=== PATIENT | female | born 1945 | race Caucasian/White ===

== ENCOUNTER 2018-05-03 14:11 | Emergency (ER) | payer MEDICARE, OTHER, SELFPAY ==
[2018-05-03 14:20] VITALS: BP 185/94; PULSE 80; RESP 18; TEMP 36.5; O2SAT 99; BMI 36.7
--- NOTE | 2018-05-03 14:22 | ED.ABDPAIN ---
HPI - Abdominal Pain <JM Petit - Last Filed: 05/03/18 22:00> General Chief Complaint: Abdominal Pain Stated Complaint: pain in front and back of abdomen Time Seen by Provider: 05/03/18 14:22 Source: patient Mode of arrival: ambulatory Limitations: no limitations History of Present Illness HPI narrative: 72-year-old female with history of hypertension and hypothyroidism that is a nonsmoker here for complaint of left lower quadrant pain and left flank pain that started earlier this morning. She denies any urinary symptoms. No nausea vomiting. Positive p.o. intake. No trauma to the painful areas. She denies any stressors or relievers of her discomfort. Last bowel movement was earlier today and was unremarkable. She denies any fevers or chills. She denies any other concerns or complaints at this timeframe. Related Data Home Medications Medication Instructions Recorded Confirmed amitriptyline 50 mg PO QPM 05/03/18 05/03/18 aspirin 325 mg PO QPM 05/03/18 05/03/18 atenolol 50 mg PO DAILY 05/03/18 05/03/18 flaxseed oil 1,000 mg PO QAM 05/03/18 05/03/18 flaxseed oil 2,000 mg PO QPM 05/03/18 05/03/18 fluoride (sodium) [PreviDent 5000 1 applic DENTAL DIRECTED 05/03/18 05/03/18 Plus] fluticasone furoate 1 spray INTRANASAL DAILY 05/03/18 05/03/18 gabapentin [Neurontin] 1,200 mg PO BID 05/03/18 05/03/18 hydrochlorothiazide 25 mg PO DAILY 05/03/18 05/03/18 levothyroxine [Synthroid] 150 mcg PO DAILY 05/03/18 05/03/18 multivitamin 1 tab PO Q OTHER DAY 05/03/18 05/03/18 omeprazole 20 mg PO BID 05/03/18 05/03/18 simvastatin 20 mg PO BEDTIME 05/03/18 05/03/18 vit C-vit M-rmvtrs-ltj-om-3 1 cap PO DAILY 05/03/18 05/03/18 [Ocuvite] Previous Rx's Medication Instructions Recorded hydrocodone-acetaminophen [[place]] 1 tab PO Q6H PRN #15 tab 05/03/18 tamsulosin 0.4 mg PO DAILY #14 cap 05/03/18 Allergies Allergy/AdvReac Type Severity Reaction Status Date / Time No Known Drug Allergies Allergy Verified 05/03/18 14:22 Review of Systems <JM Petit - Last Filed: 05/03/18 22:00> Constitutional Denies chills, Denies fever(s), Denies lethargy and Denies weakness Eyes Denies change in vision, Denies eye discharge, Denies irritation and Denies loss of vision ENT Ears, Nose, Mouth, and Throat: Denies change in voice, Denies neck pain and Denies sore throat Cardiovascular Denies chest pain, Denies irregular heart rhythm, Denies lightheadedness, Denies palpitations, Denies dyspnea, Denies dyspnea on exertion and Denies orthopnea Respiratory Denies cough, Denies dyspnea, Denies dyspnea on exertion and Denies wheezing Gastrointestinal Gastrointestinal: Reports abdominal pain Comments: Left lower quadrant pain Genitourinary Reports flank pain Musculoskeletal Denies neck pain Integumentary/Breasts Denies pruritus, Denies erythema, Denies rash and Denies wounds Neurologic Denies confusion, Denies loss of vision and Denies weakness Psychiatric Denies anxiety, Denies confusion, Denies depression, Denies homicidal ideation and Denies suicidal ideation Endocrine Denies palpitations Hematologic/Lymphatic Denies easy bruising Allergic/Immunologic Denies wheezing Exam <JM Petit - Last Filed: 05/03/18 22:00> Initial Vital Signs Initial Vital Signs: Vital Signs Temperature 97.7 F 05/03/18 14:20 Pulse Rate 80 05/03/18 14:20 Respiratory Rate 18 05/03/18 14:20 Blood Pressure 185/94 H 05/03/18 14:20 Pulse Oximetry 99 05/03/18 14:20 Const General: cooperative and well developed Nutritional Appearance: well nourished Orientation: alert, awake, oriented x3 and not confused [facility] Mouth: oral mucosae normal and moist mucous membranes Eyes Conjunctivae: conjunctivae normal Sclera: sclerae normal Pupils: PERRL EOM: EOM intact bilaterally Chest Chest: normal inspection of the chest Resp Effort & Inspection: normal respiratory effort, able to speak in complete sentences, no respiratory distress and no use of accessory muscles Auscultation: clear to auscultation bilaterally, no rales, no rhonchi and no wheezes Cardio Rate: regular rate Rhythm: regular rhythm Heart Sounds: no click, no gallops, no murmurs and no rubs GI Inspection: non-distended Palpation: soft, no hepatosplenomegaly, No guarding, No pulsatile mass and tender (Left lower quadrant tenderness) Auscultation: normal bowel sounds General: No CVA tenderness Skin General: no rashes or lesions noted, No jaundice and No petechiae Neuro General: alert, oriented x3, gait normal and no focal motor deficits Speech: speech normal <Pradeep Pelayo DO - Last Filed: 05/04/18 10:17> Initial Vital Signs Initial Vital Signs: Vital Signs Temperature 97.7 F 05/03/18 14:20 Pulse Rate 80 05/03/18 14:20 Respiratory Rate 18 05/03/18 14:20 Blood Pressure 185/94 H 05/03/18 14:20 Pulse Oximetry 99 05/03/18 14:20 Course <JM Petit - Last Filed: 05/03/18 22:00> Orders Ordered: Discontinued Medications Sodium Chloride (Normal Saline 0.9%) 1,000 mls @ 1,000 mls/hr IV BOLUS ONE Stop: 05/03/18 15:41 Last Infusion: 05/03/18 16:30 Dose: 0 mls/hr Admin: 05/03/18 15:17 Dose: 1,000 mls/hr Ketorolac Tromethamine (Toradol) 30 mg IV NOW ONE Stop: 05/03/18 14:43 Last Admin: 05/03/18 15:17 Dose: 30 mg Vital Signs - 8 hr 05/03/18 14:20 05/03/18 15:56 05/03/18 16:30 Temperature 97.7 F Pulse Rate 80 Respiratory Rate 18 Blood Pressure 185/94 H Blood Pressure [Right Arm] 175/92 H 157/81 H Pulse Oximetry 99 05/03/18 17:20 Temperature Pulse Rate 73 Respiratory Rate 15 Blood Pressure 144/71 H Blood Pressure [Right Arm] Pulse Oximetry 95 <Pradeep Pelayo DO - Last Filed: 05/04/18 10:17> Orders Ordered: Discontinued Medications Sodium Chloride (Normal Saline 0.9%) 1,000 mls @ 1,000 mls/hr IV BOLUS ONE Stop: 05/03/18 15:41 Last Infusion: 05/03/18 16:30 Dose: 0 mls/hr Admin: 05/03/18 15:17 Dose: 1,000 mls/hr Ketorolac Tromethamine (Toradol) 30 mg IV NOW ONE Stop: 05/03/18 14:43 Last Admin: 05/03/18 15:17 Dose: 30 mg Vital Signs - 8 hr 05/03/18 14:20 05/03/18 15:56 05/03/18 16:30 Temperature 97.7 F Pulse Rate 80 Respiratory Rate 18 Blood Pressure 185/94 H Blood Pressure [Right Arm] 175/92 H 157/81 H Pulse Oximetry 99 05/03/18 17:20 Temperature Pulse Rate 73 Respiratory Rate 15 Blood Pressure 144/71 H Blood Pressure [Right Arm] Pulse Oximetry 95 MDM - Abdominal Pain <JM Petit - Last Filed: 05/03/18 22:00> Lab Data Result diagrams: 05/03/18 15:15 05/03/18 15:15 Lab Results 05/03/18 05/03/18 05/03/18 Range/Units 14:20 15:15 15:15 WBC 11.8 H (4.5-11.0) X10^3/uL RBC 4.87 (4.0-5.2) X10^6/uL Hgb 14.1 (12.0-16.0) g/dL Hct 42.5 (36-46) % MCV 87.3 (80-100) fL MCH 29.0 (26-34) PG MCHC 33.2 (30-36) % RDW 13.0 (11.6-14.8) % Plt Count 213 (150-400) X10^3/uL Neut % (Auto) 87.6 H (50-75) % Lymph % (Auto) 8.2 L (25-40) % [place] % (Auto) 3.7 (3-14) % Eos % (Auto) 0.2 L (2-4) % Baso % (Auto) 0.3 (0-2) % Neut # (Auto) 78137 H (0829-6340) /uL Lymph # (Auto) 1000 L (5281-8523) /uL [place] # (Auto) 400 (0-900) /uL Eos # (Auto) 0 (0-450) /uL Baso # (Auto) 0 (0-100) /uL Sodium 138 (137-145) mmol/L Potassium 4.5 (3.4-5.1) mmol/L Chloride 102 (98-107) mmol/L Carbon Dioxide 23 (22-32) mmol/L BUN 19 H (7-17) mg/dL Creatinine 0.90 (0.52-1.04) mg/dL Estimated GFR > 60.0 (>60) mL/min BUN/Creatinine Ratio 21.1 (6-22) Glucose 125 H (80-110) mg/dL Calcium 11.5 H (8.4-10.2) mg/dL Total Bilirubin 0.4 (0.2-1.3) mg/dL AST 31 (14-36) IU/L ALT 29 (9-52) IU/L Alkaline Phosphatase 85 (38-126) U/L Total Protein 8.3 H (6.3-8.2) g/dL Albumin 4.8 (3.5-5.0) g/dL Globulin 3.5 (1.7-4.1) g/dL Albumin/Globulin Ratio 1.4 (1.0-2.8) Lipase 104 (23-300) U/L Urine Color Yellow Urine Appearance Sl cloudy Urine pH 5.5 (4.5-8.0) Ur Specific [place] >=1.030 H (1.000-1.035) Urine Protein Trace H (Negative) Urine Glucose (UA) Negative (Negative) g/dL Urine Ketones Negative (NEGATIVE) Urine Occult Blood 3+ H (Negative) Urine Nitrate Negative (Negative) Urine Bilirubin Negative (NEGATIVE) Urine Urobilinogen 0.2 (0.2) E.U./dL Ur Leukocyte Esterase Negative (NEGATIVE) Urine RBC 10-30/hpf H (0-5/HPF) Urine WBC 0-1/hpf (0-5/HPF) Ur Squamous Epith Cells 0-1 /hpf Calcium Oxalate Crystal Few H (None) Urine Bacteria None seen (None) Hyaline Casts 1-5/lpf (None) Ur Culture Indicated? Cult not indicated Imaging Data CT scan - abdomen: Radiologist's impression: [address] [place] [id number] Scan Report Signed Patient: Vianey Parrish MR#: [id number] : 1945 Acct:[id number] Age/Sex: 72 / F Date of Service: 05/03/18 Loc: ED Accession Number: [id number] Procedure: CT abdomen pelvis w con Ordering Provider: Carlos Manuel Maki PROCEDURE: CT ABDOMEN PELVIS W CON INDICATIONS: Pain to left lower quadrant and to left flank TECHNIQUE: After the administration of intravenous contrast, 5 mm thick sections acquired from the diaphragm to the symphysis. 5 mm coronal and sagittal reformats were acquired. For radiation dose reduction, the following was used: automated exposure control, adjustment of mA and/or kV according to patient size. COMPARISON: None. FINDINGS: Image quality: Excellent. ABDOMEN: Lung bases: Mild scarring and bronchiectasis is present at the bilateral lung bases. Solid organs: Liver is normal in size and enhancement. A circumscribed low density cystic lesion is present within the left hepatic lobe which likely represents a simple hepatic cyst. Gallbladder is surgically absent. There is mild intrahepatic biliary ductal dilatation. The common bile duct measures up to 1.4 cm in diameter. Pancreas enhances normally. Spleen is normal in size and enhancement. A small splenule is present the hilum. No adrenal nodules. The right mid kidney demonstrates size and enhancement. The left kidney demonstrates a slightly delayed nephrogram, perinephric fat stranding, and mild to moderate hydronephrosis. The left ureter is mildly dilated with periureteral fat stranding. A 5 mm diameter calculus is present at the left ureterovesicular junction. Peritoneum and bowel: Bowel loops demonstrate normal wall thickness and caliber. The appendix is thin walled and gas filled. No free fluid or air. Nodes and vessels: No retroperitoneal or mesenteric adenopathy by size criteria. Aorta and inferior vena cava are normal in size. Miscellaneous: No ventral hernias. PELVIS: Genitourinary: Bladder wall thickness is normal. No bladder calculi. The uterus and ovaries are grossly unremarkable. Miscellaneous: No inguinal hernias or adenopathy. Surgical clips are present at the right inguinal region. Bones: No suspicious bony lesions. No vertebral body compression fractures. IMPRESSION: 1. Obstructive left ureterolithiasis with mild to moderate left hydronephrosis, a delayed nephrogram, and periureteral and perinephric fat stranding. The finding was discussed with JM Petit at 4:05 PM on 05/03/18. 2. Normal appendix. Dictated by: Brooke Malhotra M.D. on 05/03/2018 at 15:59 Approved by: Brooke Malhotra M.D. on 05/03/2018 at 16:06 [facility] Narrative Medical decision making narrative: CBC shows white count 11.8 and elevated neutrophils. No bands. Chem panel shows mildly elevated calcium otherwise unremarkable. Urinalysis shows RBCs no signs of infection. CT of the abdomen and pelvis was obtained and shows a 5 mm stone at the left ureter vesicular junction. There is mild hydronephrosis. She is prescribed [place] for discomfort along with [id number] ibuprofen. Tamsulosin is also prescribed help facilitate passage of the stone. Plenty of fluids. Follow up with primary care provider for referral to Urology. May also contacted [facility] urology for follow-up. She is instructed to strain her urine and save any stones for analysis. For any worsening symptoms return to the emergency room. <Pradeep Pelayo, - Last Filed: 05/04/18 10:17> Lab Data Lab Results 05/03/18 05/03/18 05/03/18 Range/Units 14:20 15:15 15:15 WBC 11.8 H (4.5-11.0) X10^3/uL RBC 4.87 (4.0-5.2) X10^6/uL Hgb 14.1 (12.0-16.0) g/dL Hct 42.5 (36-46) % MCV 87.3 (80-100) fL MCH 29.0 (26-34) PG MCHC 33.2 (30-36) % RDW 13.0 (11.6-14.8) % Plt Count 213 (150-400) X10^3/uL Neut % (Auto) 87.6 H (50-75) % Lymph % (Auto) 8.2 L (25-40) % [place] % (Auto) 3.7 (3-14) % Eos % (Auto) 0.2 L (2-4) % Baso % (Auto) 0.3 (0-2) % Neut # (Auto) 87253 H (3509-3423) /uL Lymph # (Auto) 1000 L (6795-9088) /uL [place] # (Auto) 400 (0-900) /uL Eos # (Auto) 0 (0-450) /uL Baso # (Auto) 0 (0-100) /uL Sodium 138 (137-145) mmol/L Potassium 4.5 (3.4-5.1) mmol/L Chloride 102 (98-107) mmol/L Carbon Dioxide 23 (22-32) mmol/L BUN 19 H (7-17) mg/dL Creatinine 0.90 (0.52-1.04) mg/dL Estimated GFR > 60.0 (>60) mL/min BUN/Creatinine Ratio 21.1 (6-22) Glucose 125 H (80-110) mg/dL Calcium 11.5 H (8.4-10.2) mg/dL Total Bilirubin 0.4 (0.2-1.3) mg/dL AST 31 (14-36) IU/L ALT 29 (9-52) IU/L Alkaline Phosphatase 85 (38-126) U/L Total Protein 8.3 H (6.3-8.2) g/dL Albumin 4.8 (3.5-5.0) g/dL Globulin 3.5 (1.7-4.1) g/dL Albumin/Globulin Ratio 1.4 (1.0-2.8) Lipase 104 (23-300) U/L Urine Color Yellow Urine Appearance Sl cloudy Urine pH 5.5 (4.5-8.0) Ur Specific [place] >=1.030 H (1.000-1.035) Urine Protein Trace H (Negative) Urine Glucose (UA) Negative (Negative) g/dL Urine Ketones Negative (NEGATIVE) Urine Occult Blood 3+ H (Negative) Urine Nitrate Negative (Negative) Urine Bilirubin Negative (NEGATIVE) Urine Urobilinogen 0.2 (0.2) E.U./dL Ur Leukocyte Esterase Negative (NEGATIVE) Urine RBC 10-30/hpf H (0-5/HPF) Urine WBC 0-1/hpf (0-5/HPF) Ur Squamous Epith Cells 0-1 /hpf Calcium Oxalate Crystal Few H (None) Urine Bacteria None seen (None) Hyaline Casts 1-5/lpf (None) Ur Culture Indicated? Cult not indicated Discharge Plan Departure Patient Disposition: Home Clinical Impression: Calculus of kidney Discharge Date/Time: 05/03/18 17:21 Interventions: ED Discharge Assessment Last Done: 05/03/18 17:20 Instructions: DI for Kidney Stones Activity Restrictions/Additional Instructions: CT was obtained and shows that you have a kidney stone into your left kidney/ureter. Follow up with her primary care provider call the office tomorrow to obtain referral to Urology. Other option would be to call [facility] at number provided below to schedule follow-up at their kidney stone center. Plenty of fluids. Plbd-hop-ircnlzq ibuprofen as needed for discomfort. [place] was also prescribed for pain use as directed no driving while on the [place]. tamulosin is also prescribed help facilitate passage of the stone. Strain urine and if any stone passes save for analysis For any worsening symptoms return to the emergency room. Prescriptions: New hydrocodone-acetaminophen [[place]] 5-325 mg tablet 1 tab PO Q6H PRN (Reason: pain) Qty: 15 RF: 0 tamsulosin 0.4 mg capsule 0.4 mg PO DAILY Qty: 14 RF: 0 No Action gabapentin [Neurontin] 600 mg tablet 1,200 mg PO BID RF: 0 amitriptyline 50 mg tablet 50 mg PO QPM RF: 0 aspirin 325 mg tablet,delayed release (DR/EC) 325 mg PO QPM RF: 0 simvastatin 20 mg tablet 20 mg PO BEDTIME RF: 0 levothyroxine [Synthroid] 150 mcg tablet 150 mcg PO DAILY RF: 0 omeprazole 20 mg capsule,delayed release(DR/EC) 20 mg PO BID RF: 0 hydrochlorothiazide 25 mg tablet 25 mg PO DAILY RF: 0 atenolol 50 mg tablet 50 mg PO DAILY RF: 0 fluoride (sodium) [PreviDent 5000 Plus] 1.1 % cream 1 applic Dental DIRECTED RF: 0 multivitamin Tablet 1 tab PO Q OTHER DAY RF: 0 flaxseed oil 1,000 mg Capsule 2,000 mg PO QPM RF: 0 flaxseed oil 1,000 mg Capsule 1,000 mg PO QAM RF: 0 fluticasone furoate 27.5 mcg/actuation [place],Suspension 1 spray INTRANASAL DAILY RF: 0 vit C-vit H-mwkxfo-qiy-om-3 [Ocuvite] [id number] sn-xcky-qi-mg Capsule 1 cap PO DAILY RF: 0 Referrals: [facility] [Provider Group] Mann Holm MD [Primary Care Provider] - <Pradeep Pelayo DO - Last Filed: 05/04/18 10:17> Cosign ED Attending Michaelature Attestation: I was immediately available in the department for consultation. Documentation has been reviewed. I agree with assessment and plan.
--- NOTE | 2018-05-03 14:46 | DI.CT.S_ITS ---
PROCEDURE: CT ABDOMEN PELVIS W CON INDICATIONS: Pain to left lower quadrant and to left flank TECHNIQUE: After the administration of intravenous contrast, 5 mm thick sections acquired from the diaphragm to the symphysis. 5 mm coronal and sagittal reformats were acquired. For radiation dose reduction, the following was used: automated exposure control, adjustment of mA and/or kV according to patient size. COMPARISON: None. FINDINGS: Image quality: Excellent. ABDOMEN: Lung bases: Mild scarring and bronchiectasis is present at the bilateral lung bases. Solid organs: Liver is normal in size and enhancement. A circumscribed low density cystic lesion is present within the left hepatic lobe which likely represents a simple hepatic cyst. Gallbladder is surgically absent. There is mild intrahepatic biliary ductal dilatation. The common bile duct measures up to 1.4 cm in diameter. Pancreas enhances normally. Spleen is normal in size and enhancement. A small splenule is present the hilum. No adrenal nodules. The right mid kidney demonstrates size and enhancement. The left kidney demonstrates a slightly delayed nephrogram, perinephric fat stranding, and mild to moderate hydronephrosis. The left ureter is mildly dilated with periureteral fat stranding. A 5 mm diameter calculus is present at the left ureterovesicular junction. Peritoneum and bowel: Bowel loops demonstrate normal wall thickness and caliber. The appendix is thin walled and gas filled. No free fluid or air. Nodes and vessels: No retroperitoneal or mesenteric adenopathy by size criteria. Aorta and inferior vena cava are normal in size. Miscellaneous: No ventral hernias. PELVIS: Genitourinary: Bladder wall thickness is normal. No bladder calculi. The uterus and ovaries are grossly unremarkable. Miscellaneous: No inguinal hernias or adenopathy. Surgical clips are present at the right inguinal region. Bones: No suspicious bony lesions. No vertebral body compression fractures. IMPRESSION: 1. Obstructive left ureterolithiasis with mild to moderate left hydronephrosis, a delayed nephrogram, and periureteral and perinephric fat stranding. The finding was discussed with JM Petit at 4:05 PM on 05/03/18. 2. Normal appendix. Dictated by: Brooke Malhotra M.D. on 05/03/2018 at 15:59 Approved by: Brooke Malhotra M.D. on 05/03/2018 at 16:06
[2018-05-03 15:07] LABS: Bacteria Urine None Seen
[2018-05-03 15:15] LABS: Appearance Urine UA SL CLOUDY; Bilirubin Urine UA NEGATIVE (NEGATIVE); Color Urine UA YELLOW; Glucose Urine UA NEGATIVE (Negative); Ketones Urine UA NEGATIVE (NEGATIVE); Leukocyte Esterase Urine UA NEGATIVE (NEGATIVE); Nitrite Urine UA NEGATIVE (Negative); Occult Blood Urine UA 3+ (Negative); Protein Urine UA TRACE (Negative); Specific Gravity Urine UA >=1.030 (1.000-1.035); Urobilinogen Urine UA 0.2 E.U./dL (0.2); pH Urine UA 5.5 (4.5-8.0)
[2018-05-03] MEDS: SODIUM CHLORIDE 0.9% 1,000 ML 1000 ML IV (15:17)
[2018-05-03] MEDS: KETOROLAC 60 MG/2 ML VIAL 30 MG IV (15:17)
[2018-05-03 15:21] LABS: Add Manual Diff / Slide Review NO; Basophils Absolute Auto 0 /uL (0-100); Basophils Percent Auto 0.3 % (0-2); Eosinophils Absolute Auto 0 /uL (0-450); Eosinophils Percent Auto 0.2 % (2-4); Hematocrit 42.5 % (36-46); Hemoglobin 14.1 g/dL (12.0-16.0); Lymphocytes Absolute Auto 1000 /uL (1100-4500); Lymphocytes Percent Auto 8.2 % (25-40); Mean Corpuscular HGB Conc 33.2 % (30-36); Mean Corpuscular Volume 87.3 fL (80-100); Monocytes Absolute Auto 400 /uL (0-900); Monocytes Percent Auto 3.7 % (3-14); Neutrophils Absolute Auto 10400 /uL (1500-7000); Neutrophils Percent Auto 87.6 % (50-75); Platelet Count 213 X10^3/uL (150-400); Red Blood Cell Count 4.87 X10^6/uL (4.0-5.2); White Blood Cell Count 11.8 X10^3/uL (4.5-11.0)
[2018-05-03 15:31] LABS: Alanine Aminotransferase 29 IU/L (9-52); Albumin 4.8 g/dL (3.5-5.0); Albumin Globulin Ratio 1.4 (1.0-2.8); Alkaline Phosphatase 85 U/L (38-126); Aspartate Aminotransferase 31 IU/L (14-36); BUN Creatinine Ratio 21.1 (6-22); Bilirubin Total 0.4 mg/dL (0.2-1.3); Blood Urea Nitrogen 19 mg/dL (7-17); Calcium 11.5 mg/dL (8.4-10.2); Carbon Dioxide 23 mmol/L (22-32); Chloride 102 mmol/L (98-107); Estimated Glomerular Filt Rate > 60.0 mL/min (>60); Globulin 3.5 g/dL (1.7-4.1); Glucose 125 mg/dL (80-110); HEMOLYSIS < 15 (0-50); Lipase 104 U/L (23-300); Potassium 4.5 mmol/L (3.4-5.1); Sodium 138 mmol/L (137-145); Total Protein 8.3 g/dL (6.3-8.2)
[2018-05-03 15:33] LABS: Calcium Oxalate Crystals Urine Few; RBC Urine 10-30/HPF (0-5/HPF); Squamous Epithelial Cell Urine 0-1 /HPF; WBC Urine 0-1/HPF (0-5/HPF)
[2018-05-03 15:34] LABS: Culture Indicated Urine Cult Not Indicated; Hyaline Casts Urine 1-5/LPF
[2018-05-03 15:56] VITALS: BP 175/92
[2018-05-03 16:30] VITALS: BP 157/81
--- NOTE | 2018-05-03 16:47 | ED_ITS ---
HPI - Abdominal Pain <JM Petit - Last Filed: 05/03/18 22:00> General Chief Complaint: Abdominal Pain Stated Complaint: pain in front and back of abdomen Time Seen by Provider: 05/03/18 14:22 Source: patient Mode of arrival: ambulatory Limitations: no limitations History of Present Illness HPI narrative: 72-year-old female with history of hypertension and hypothyroidism that is a nonsmoker here for complaint of left lower quadrant pain and left flank pain that started earlier this morning. She denies any urinary symptoms. No nausea vomiting. Positive p.o. intake. No trauma to the painful areas. She denies any stressors or relievers of her discomfort. Last bowel movement was earlier today and was unremarkable. She denies any fevers or chills. She denies any other concerns or complaints at this timeframe. Related Data Home Medications Medication Instructions Recorded Confirmed amitriptyline 50 mg PO QPM 05/03/18 05/03/18 aspirin 325 mg PO QPM 05/03/18 05/03/18 atenolol 50 mg PO DAILY 05/03/18 05/03/18 flaxseed oil 1,000 mg PO QAM 05/03/18 05/03/18 flaxseed oil 2,000 mg PO QPM 05/03/18 05/03/18 fluoride (sodium) [PreviDent 5000 1 applic DENTAL DIRECTED 05/03/18 05/03/18 Plus] fluticasone furoate 1 spray INTRANASAL DAILY 05/03/18 05/03/18 gabapentin [Neurontin] 1,200 mg PO BID 05/03/18 05/03/18 hydrochlorothiazide 25 mg PO DAILY 05/03/18 05/03/18 levothyroxine [Synthroid] 150 mcg PO DAILY 05/03/18 05/03/18 multivitamin 1 tab PO Q OTHER DAY 05/03/18 05/03/18 omeprazole 20 mg PO BID 05/03/18 05/03/18 simvastatin 20 mg PO BEDTIME 05/03/18 05/03/18 vit C-vit Z-snbseq-qmq-om-3 1 cap PO DAILY 05/03/18 05/03/18 [Ocuvite] Previous Rx's Medication Instructions Recorded hydrocodone-acetaminophen [[place]] 1 tab PO Q6H PRN #15 tab 05/03/18 tamsulosin 0.4 mg PO DAILY #14 cap 05/03/18 Allergies Allergy/AdvReac Type Severity Reaction Status Date / Time No Known Drug Allergies Allergy Verified 05/03/18 14:22 Review of Systems <JM Petit - Last Filed: 05/03/18 22:00> Constitutional Denies chills, Denies fever(s), Denies lethargy and Denies weakness Eyes Denies change in vision, Denies eye discharge, Denies irritation and Denies loss of vision ENT Ears, Nose, Mouth, and Throat: Denies change in voice, Denies neck pain and Denies sore throat Cardiovascular Denies chest pain, Denies irregular heart rhythm, Denies lightheadedness, Denies palpitations, Denies dyspnea, Denies dyspnea on exertion and Denies orthopnea Respiratory Denies cough, Denies dyspnea, Denies dyspnea on exertion and Denies wheezing Gastrointestinal Gastrointestinal: Reports abdominal pain Comments: Left lower quadrant pain Genitourinary Reports flank pain Musculoskeletal Denies neck pain Integumentary/Breasts Denies pruritus, Denies erythema, Denies rash and Denies wounds Neurologic Denies confusion, Denies loss of vision and Denies weakness Psychiatric Denies anxiety, Denies confusion, Denies depression, Denies homicidal ideation and Denies suicidal ideation Endocrine Denies palpitations Hematologic/Lymphatic Denies easy bruising Allergic/Immunologic Denies wheezing Exam <JM Petit - Last Filed: 05/03/18 22:00> Initial Vital Signs Initial Vital Signs: Vital Signs Temperature 97.7 F 05/03/18 14:20 Pulse Rate 80 05/03/18 14:20 Respiratory Rate 18 05/03/18 14:20 Blood Pressure 185/94 H 05/03/18 14:20 Pulse Oximetry 99 05/03/18 14:20 Const General: cooperative and well developed Nutritional Appearance: well nourished Orientation: alert, awake, oriented x3 and not confused [facility] Mouth: oral mucosae normal and moist mucous membranes Eyes Conjunctivae: conjunctivae normal Sclera: sclerae normal Pupils: PERRL EOM: EOM intact bilaterally Chest Chest: normal inspection of the chest Resp Effort & Inspection: normal respiratory effort, able to speak in complete sentences, no respiratory distress and no use of accessory muscles Auscultation: clear to auscultation bilaterally, no rales, no rhonchi and no wheezes Cardio Rate: regular rate Rhythm: regular rhythm Heart Sounds: no click, no gallops, no murmurs and no rubs GI Inspection: non-distended Palpation: soft, no hepatosplenomegaly, No guarding, No pulsatile mass and tender (Left lower quadrant tenderness) Auscultation: normal bowel sounds General: No CVA tenderness Skin General: no rashes or lesions noted, No jaundice and No petechiae Neuro General: alert, oriented x3, gait normal and no focal motor deficits Speech: speech normal <Pradeep Pelayo DO - Last Filed: 05/04/18 10:17> Initial Vital Signs Initial Vital Signs: Vital Signs Temperature 97.7 F 05/03/18 14:20 Pulse Rate 80 05/03/18 14:20 Respiratory Rate 18 05/03/18 14:20 Blood Pressure 185/94 H 05/03/18 14:20 Pulse Oximetry 99 05/03/18 14:20 Course <JM Petit - Last Filed: 05/03/18 22:00> Orders Ordered: Discontinued Medications Sodium Chloride (Normal Saline 0.9%) 1,000 mls @ 1,000 mls/hr IV BOLUS ONE Stop: 05/03/18 15:41 Last Infusion: 05/03/18 16:30 Dose: 0 mls/hr Admin: 05/03/18 15:17 Dose: 1,000 mls/hr Ketorolac Tromethamine (Toradol) 30 mg IV NOW ONE Stop: 05/03/18 14:43 Last Admin: 05/03/18 15:17 Dose: 30 mg Vital Signs - 8 hr 05/03/18 14:20 05/03/18 15:56 05/03/18 16:30 Temperature 97.7 F Pulse Rate 80 Respiratory Rate 18 Blood Pressure 185/94 H Blood Pressure [Right Arm] 175/92 H 157/81 H Pulse Oximetry 99 05/03/18 17:20 Temperature Pulse Rate 73 Respiratory Rate 15 Blood Pressure 144/71 H Blood Pressure [Right Arm] Pulse Oximetry 95 <Pradeep Pelayo DO - Last Filed: 05/04/18 10:17> Orders Ordered: Discontinued Medications Sodium Chloride (Normal Saline 0.9%) 1,000 mls @ 1,000 mls/hr IV BOLUS ONE Stop: 05/03/18 15:41 Last Infusion: 05/03/18 16:30 Dose: 0 mls/hr Admin: 05/03/18 15:17 Dose: 1,000 mls/hr Ketorolac Tromethamine (Toradol) 30 mg IV NOW ONE Stop: 05/03/18 14:43 Last Admin: 05/03/18 15:17 Dose: 30 mg Vital Signs - 8 hr 05/03/18 14:20 05/03/18 15:56 05/03/18 16:30 Temperature 97.7 F Pulse Rate 80 Respiratory Rate 18 Blood Pressure 185/94 H Blood Pressure [Right Arm] 175/92 H 157/81 H Pulse Oximetry 99 05/03/18 17:20 Temperature Pulse Rate 73 Respiratory Rate 15 Blood Pressure 144/71 H Blood Pressure [Right Arm] Pulse Oximetry 95 MDM - Abdominal Pain <MJ Petit - Last Filed: 05/03/18 22:00> Lab Data Result diagrams: 05/03/18 15:15 05/03/18 15:15 Lab Results 05/03/18 05/03/18 05/03/18 Range/Units 14:20 15:15 15:15 WBC 11.8 H (4.5-11.0) X10^3/uL RBC 4.87 (4.0-5.2) X10^6/uL Hgb 14.1 (12.0-16.0) g/dL Hct 42.5 (36-46) % MCV 87.3 (80-100) fL MCH 29.0 (26-34) PG MCHC 33.2 (30-36) % RDW 13.0 (11.6-14.8) % Plt Count 213 (150-400) X10^3/uL Neut % (Auto) 87.6 H (50-75) % Lymph % (Auto) 8.2 L (25-40) % [place] % (Auto) 3.7 (3-14) % Eos % (Auto) 0.2 L (2-4) % Baso % (Auto) 0.3 (0-2) % Neut # (Auto) 14872 H (4349-9757) /uL Lymph # (Auto) 1000 L (0000-2271) /uL [place] # (Auto) 400 (0-900) /uL Eos # (Auto) 0 (0-450) /uL Baso # (Auto) 0 (0-100) /uL Sodium 138 (137-145) mmol/L Potassium 4.5 (3.4-5.1) mmol/L Chloride 102 (98-107) mmol/L Carbon Dioxide 23 (22-32) mmol/L BUN 19 H (7-17) mg/dL Creatinine 0.90 (0.52-1.04) mg/dL Estimated GFR > 60.0 (>60) mL/min BUN/Creatinine Ratio 21.1 (6-22) Glucose 125 H (80-110) mg/dL Calcium 11.5 H (8.4-10.2) mg/dL Total Bilirubin 0.4 (0.2-1.3) mg/dL AST 31 (14-36) IU/L ALT 29 (9-52) IU/L Alkaline Phosphatase 85 (38-126) U/L Total Protein 8.3 H (6.3-8.2) g/dL Albumin 4.8 (3.5-5.0) g/dL Globulin 3.5 (1.7-4.1) g/dL Albumin/Globulin Ratio 1.4 (1.0-2.8) Lipase 104 (23-300) U/L Urine Color Yellow Urine Appearance Sl cloudy Urine pH 5.5 (4.5-8.0) Ur Specific [place] >=1.030 H (1.000-1.035) Urine Protein Trace H (Negative) Urine Glucose (UA) Negative (Negative) g/dL Urine Ketones Negative (NEGATIVE) Urine Occult Blood 3+ H (Negative) Urine Nitrate Negative (Negative) Urine Bilirubin Negative (NEGATIVE) Urine Urobilinogen 0.2 (0.2) E.U./dL Ur Leukocyte Esterase Negative (NEGATIVE) Urine RBC 10-30/hpf H (0-5/HPF) Urine WBC 0-1/hpf (0-5/HPF) Ur Squamous Epith Cells 0-1 /hpf Calcium Oxalate Crystal Few H (None) Urine Bacteria None seen (None) Hyaline Casts 1-5/lpf (None) Ur Culture Indicated? Cult not indicated Imaging Data CT scan - abdomen: Radiologist's impression: [address] [place] [id number] Scan Report Signed Patient: Vianey Parrish MR#: [id number] : 1945 Acct:[id number] Age/Sex: 72 / F Date of Service: 05/03/18 Loc: ED Accession Number: [id number] Procedure: CT abdomen pelvis w con Ordering Provider: Carlos Manuel Maki PROCEDURE: CT ABDOMEN PELVIS W CON INDICATIONS: Pain to left lower quadrant and to left flank TECHNIQUE: After the administration of intravenous contrast, 5 mm thick sections acquired from the diaphragm to the symphysis. 5 mm coronal and sagittal reformats were acquired. For radiation dose reduction, the following was used: automated exposure control, adjustment of mA and/or kV according to patient size. COMPARISON: None. FINDINGS: Image quality: Excellent. ABDOMEN: Lung bases: Mild scarring and bronchiectasis is present at the bilateral lung bases. Solid organs: Liver is normal in size and enhancement. A circumscribed low density cystic lesion is present within the left hepatic lobe which likely represents a simple hepatic cyst. Gallbladder is surgically absent. There is mild intrahepatic biliary ductal dilatation. The common bile duct measures up to 1.4 cm in diameter. Pancreas enhances normally. Spleen is normal in size and enhancement. A small splenule is present the hilum. No adrenal nodules. The right mid kidney demonstrates size and enhancement. The left kidney demonstrates a slightly delayed nephrogram, perinephric fat stranding, and mild to moderate hydronephrosis. The left ureter is mildly dilated with periureteral fat stranding. A 5 mm diameter calculus is present at the left ureterovesicular junction. Peritoneum and bowel: Bowel loops demonstrate normal wall thickness and caliber. The appendix is thin walled and gas filled. No free fluid or air. Nodes and vessels: No retroperitoneal or mesenteric adenopathy by size criteria. Aorta and inferior vena cava are normal in size. Miscellaneous: No ventral hernias. PELVIS: Genitourinary: Bladder wall thickness is normal. No bladder calculi. The uterus and ovaries are grossly unremarkable. Miscellaneous: No inguinal hernias or adenopathy. Surgical clips are present at the right inguinal region. Bones: No suspicious bony lesions. No vertebral body compression fractures. IMPRESSION: 1. Obstructive left ureterolithiasis with mild to moderate left hydronephrosis, a delayed nephrogram, and periureteral and perinephric fat stranding. The finding was discussed with JM Petit at 4:05 PM on 05/03/18. 2. Normal appendix. Dictated by: Brooke Malhotra M.D. on 05/03/2018 at 15:59 Approved by: Brooke Malhotra M.D. on 05/03/2018 at 16:06 [facility] Narrative Medical decision making narrative: CBC shows white count 11.8 and elevated neutrophils. No bands. Chem panel shows mildly elevated calcium otherwise unremarkable. Urinalysis shows RBCs no signs of infection. CT of the abdomen and pelvis was obtained and shows a 5 mm stone at the left ureter vesicular junction. There is mild hydronephrosis. She is prescribed [place] for discomfort along with [id number] ibuprofen. Tamsulosin is also prescribed help facilitate passage of the stone. Plenty of fluids. Follow up with primary care provider for referral to Urology. May also contacted [facility] urology for follow-up. She is instructed to strain her urine and save any stones for analysis. For any worsening symptoms return to the emergency room. <Pradeep Pelayo, - Last Filed: 05/04/18 10:17> Lab Data Lab Results 05/03/18 05/03/18 05/03/18 Range/Units 14:20 15:15 15:15 WBC 11.8 H (4.5-11.0) X10^3/uL RBC 4.87 (4.0-5.2) X10^6/uL Hgb 14.1 (12.0-16.0) g/dL Hct 42.5 (36-46) % MCV 87.3 (80-100) fL MCH 29.0 (26-34) PG MCHC 33.2 (30-36) % RDW 13.0 (11.6-14.8) % Plt Count 213 (150-400) X10^3/uL Neut % (Auto) 87.6 H (50-75) % Lymph % (Auto) 8.2 L (25-40) % [place] % (Auto) 3.7 (3-14) % Eos % (Auto) 0.2 L (2-4) % Baso % (Auto) 0.3 (0-2) % Neut # (Auto) 35355 H (4180-1110) /uL Lymph # (Auto) 1000 L (4198-5978) /uL [place] # (Auto) 400 (0-900) /uL Eos # (Auto) 0 (0-450) /uL Baso # (Auto) 0 (0-100) /uL Sodium 138 (137-145) mmol/L Potassium 4.5 (3.4-5.1) mmol/L Chloride 102 (98-107) mmol/L Carbon Dioxide 23 (22-32) mmol/L BUN 19 H (7-17) mg/dL Creatinine 0.90 (0.52-1.04) mg/dL Estimated GFR > 60.0 (>60) mL/min BUN/Creatinine Ratio 21.1 (6-22) Glucose 125 H (80-110) mg/dL Calcium 11.5 H (8.4-10.2) mg/dL Total Bilirubin 0.4 (0.2-1.3) mg/dL AST 31 (14-36) IU/L ALT 29 (9-52) IU/L Alkaline Phosphatase 85 (38-126) U/L Total Protein 8.3 H (6.3-8.2) g/dL Albumin 4.8 (3.5-5.0) g/dL Globulin 3.5 (1.7-4.1) g/dL Albumin/Globulin Ratio 1.4 (1.0-2.8) Lipase 104 (23-300) U/L Urine Color Yellow Urine Appearance Sl cloudy Urine pH 5.5 (4.5-8.0) Ur Specific [place] >=1.030 H (1.000-1.035) Urine Protein Trace H (Negative) Urine Glucose (UA) Negative (Negative) g/dL Urine Ketones Negative (NEGATIVE) Urine Occult Blood 3+ H (Negative) Urine Nitrate Negative (Negative) Urine Bilirubin Negative (NEGATIVE) Urine Urobilinogen 0.2 (0.2) E.U./dL Ur Leukocyte Esterase Negative (NEGATIVE) Urine RBC 10-30/hpf H (0-5/HPF) Urine WBC 0-1/hpf (0-5/HPF) Ur Squamous Epith Cells 0-1 /hpf Calcium Oxalate Crystal Few H (None) Urine Bacteria None seen (None) Hyaline Casts 1-5/lpf (None) Ur Culture Indicated? Cult not indicated Discharge Plan Departure Patient Disposition: Home Clinical Impression: Calculus of kidney Discharge Date/Time: 05/03/18 17:21 Interventions: ED Discharge Assessment Last Done: 05/03/18 17:20 Instructions: DI for Kidney Stones Activity Restrictions/Additional Instructions: CT was obtained and shows that you have a kidney stone into your left kidney/ ureter. Follow up with her primary care provider call the office tomorrow to obtain referral to Urology. Other option would be to call [facility] at number provided below to schedule follow-up at their kidney stone center. Plenty of fluids. Ltla-smh-ejhqbdk ibuprofen as needed for discomfort. [place] was also prescribed for pain use as directed no driving while on the [place]. tamulosin is also prescribed help facilitate passage of the stone. Strain urine and if any stone passes save for analysis For any worsening symptoms return to the emergency room. Prescriptions: New hydrocodone-acetaminophen [[place]] 5-325 mg tablet 1 tab PO Q6H PRN (Reason: pain) Qty: 15 RF: 0 tamsulosin 0.4 mg capsule 0.4 mg PO DAILY Qty: 14 RF: 0 No Action gabapentin [Neurontin] 600 mg tablet 1,200 mg PO BID RF: 0 amitriptyline 50 mg tablet 50 mg PO QPM RF: 0 aspirin 325 mg tablet,delayed release (DR/EC) 325 mg PO QPM RF: 0 simvastatin 20 mg tablet 20 mg PO BEDTIME RF: 0 levothyroxine [Synthroid] 150 mcg tablet 150 mcg PO DAILY RF: 0 omeprazole 20 mg capsule,delayed release(DR/EC) 20 mg PO BID RF: 0 hydrochlorothiazide 25 mg tablet 25 mg PO DAILY RF: 0 atenolol 50 mg tablet 50 mg PO DAILY RF: 0 fluoride (sodium) [PreviDent 5000 Plus] 1.1 % cream 1 applic Dental DIRECTED RF: 0 multivitamin Tablet 1 tab PO Q OTHER DAY RF: 0 flaxseed oil 1,000 mg Capsule 2,000 mg PO QPM RF: 0 flaxseed oil 1,000 mg Capsule 1,000 mg PO QAM RF: 0 fluticasone furoate 27.5 mcg/actuation [place],Suspension 1 spray INTRANASAL DAILY RF: 0 vit C-vit F-bskyfj-tik-om-3 [Ocuvite] 150-01-0-150 xf-xetr-uz-mg Capsule 1 cap PO DAILY RF: 0 Referrals: [facility] [Provider Group] Mann Holm MD [Primary Care Provider] - <Pradeep Pelayo DO - Last Filed: 05/04/18 10:17> Cosign ED Attending Michaelature Attestation: I was immediately available in the department for consultation. Documentation has been reviewed. I agree with assessment and plan.
[2018-05-03 17:20] VITALS: BP 144/71; PULSE 73; RESP 15; O2SAT 95
== END 2018-05-03 17:21 | disposition home or self-care (01) ==
PROVIDERS: Emergency Provider Nurse Practitioner Family; PCP Family Medicine
DX: N20.0 Calculus of kidney (principal)
CPT/HCPCS: 36591; 74177; 80053; 81001; 83690; 85025; 96361; 96374; 99283; 99285; J1885; Q9967

== ENCOUNTER → 2018-09-01 10:00 | Outpatient (CLI) | payer MEDICARE, OTHER, SELFPAY ==
--- NOTE | 2018-09-01 | DI.RAD.S_ITS ---
PROCEDURE: XR CHEST 2V INDICATIONS: Cough TECHNIQUE: 2 views of the chest were acquired. COMPARISON: None. FINDINGS: Surgical changes and devices: None. Lungs and pleura: Lungs are clear. No pleural effusions or pneumothorax. Mediastinum: Mediastinal contours are normal. Heart size is mildly enlarged. Bones and chest wall: No suspicious bony abnormalities. Soft tissues appear unremarkable. IMPRESSION: No acute cardiopulmonary pathology. Dictated by: López Ram M.D. on 09/01/2018 at 11:51 Approved by: López Ram M.D. on 09/01/2018 at 11:55
== END ==
PROVIDERS: PCP Family Medicine; Visit Provider Family Medicine
DX: R05 Cough (principal)
CPT/HCPCS: 71046

== ENCOUNTER → 2018-12-04 13:51 | Outpatient (CLI) | payer MEDICARE, OTHER, SELFPAY ==
--- NOTE | 2018-12-04 | DI.MG.S_ITS ---
BILATERAL DIGITAL SCREENING MAMMOGRAM 3D/2D WITH CAD: 12/04/2018 CLINICAL: Routine screening. Comparison is made to exams dated: 12/02/2016 mammogram, 12/16/2014 mammogram - [facility], and 10/11/2012 mammogram - [facility]. The tissue of both breasts is heterogeneously dense. This may lower the sensitivity of mammography. Current study was also evaluated with a Computer Aided Detection (CAD) system. No significant masses, calcifications, or other findings are seen in either breast. There has been no significant interval change. IMPRESSION: NEGATIVE There is no mammographic evidence of malignancy. A 1 year screening mammogram is recommended. This exam was interpreted at Station ID: [id number]. NOTE: For mammograms, a report in lay terms will be sent to the patient. Approximately 15% of breast malignancies will not be visualized mammographically. In the management of a palpable breast mass, a negative mammogram must not discourage biopsy of a clinically suspicious lesion. Electronically Signed By: Manuel jennings/laurie:12/04/2018 16:24:47 letter sent: Normal Exam ACR BI-RADS Category 1: Negative [id number]
== END ==
PROVIDERS: PCP Family Medicine; Visit Provider Family Medicine
DX: Z12.31 Encounter for screening mammogram for malignant neoplasm of breast (principal)
CPT/HCPCS: 77063; 77067

== ENCOUNTER → 2018-12-13 10:24 | Outpatient (CLI) | payer MEDICARE, OTHER, SELFPAY ==
--- NOTE | 2018-12-13 | DI.US.S_ITS ---
ULTRASOUND OF RIGHT BREAST: 12/13/2018 CLINICAL: Palpable right breast lump. Comparison is made to exams dated: 12/04/2018 mammogram, 12/02/2016 mammogram, 12/16/2014 mammogram - [facility], 10/11/2012 mammogram, 11/27/2011 mammogram, and 08/31/2011 mammogram - [facility]. Color flow ultrasound of the right breast was performed on the areas of interest. Bennett scale images of the real-time examination were reviewed. There is a 1.5 x 1.2 x 1.3 cm irregularly marginated mass in the right breast at 12:00, anterior depth, 3 cm from the nipple. This mass has a heterogeneous appearance including both hyperechoic soft tissue and cystic regions. This corresponds as palpated, and was not visualized on the recent screening mammogram dated 12/04/18. IMPRESSION: SUSPICIOUS OF MALIGNANCY The 1.5 x 1.2 x 1.3 cm irregular mass in the right breast is at a low suspicion for malignancy. Differential considerations include fat necrosis; however the patient denies any history of trauma to this region of the breast. Ultrasound-guided biopsy is recommended. This exam was interpreted at Station ID: [id number]. SUMMARY: This was discussed with the patient by the radiologist, Dr. Cooper at the time of the exam. Electronically Signed By: Brooke Malhotra M.D. lk/:12/13/2018 16:42:44 letter sent: Biopsy Required Ultrasound BI-RADS: 4a Suspicious abnormality - low suspicion for malignancy
== END ==
PROVIDERS: PCP Family Medicine; Visit Provider Family Medicine
DX: N63.10 Unspecified lump in the right breast, unspecified quadrant (principal)
CPT/HCPCS: 76642

== ENCOUNTER → 2018-12-28 08:40 | Outpatient (CLI) | payer MEDICARE, OTHER, SELFPAY ==
--- NOTE | 2018-12-28 | DI.MG.S_ITS ---
UNILATERAL RIGHT DIGITAL DIAGNOSTIC MAMMOGRAM POST-NEEDLE BIOPSY: 12/28/2018 CLINICAL: Right breast mass. Comparison is made to exams dated: 12/04/2018 mammogram, 12/02/2016 mammogram, and 12/16/2014 mammogram - [facility]. The tissue of right breast is heterogeneously dense. This may lower the sensitivity of mammography. There is a marker clip in the appropriate position in the right breast at 12 o'clock middle depth. This marker clip placement is at the biopsy site. IMPRESSION: POST PROCEDURE MAMMOGRAM FOR MARKER PLACEMENT There was a successful marker clip placement in the right breast middle depth. This exam was interpreted at Station ID: [id number]. NOTE: For mammograms, a report in lay terms will be sent to the patient. Approximately 15% of breast malignancies will not be visualized mammographically. In the management of a palpable breast mass, a negative mammogram must not discourage biopsy of a clinically suspicious lesion. Electronically Signed By: Alex hyde/:12/28/2018 17:25:06 ACR BI-RADS Category Post-procedure mammogram for marker placement
--- NOTE | 2018-12-28 | DI.US.S_ITS ---
ULTRASOUND GUIDED BIOPSY RIGHT BREAST USING VACUUM DEVICE WITH MARKING DEVICE INSERTED: 12/28/2018 CLINICAL: Palpable right breast lump. PATIENT CONSENT: Risks (minor bleeding, infection, vasovagal reaction and repeat procedure), benefits and alternatives were explained to the patient and written informed consent was obtained. Correlation is made to exams dated: 12/28/2018 mammogram, 12/13/2018 ultrasound, 12/04/2018 mammogram, 12/02/2016 mammogram, 12/16/2014 mammogram - [facility], and 10/11/2012 mammogram - [facility]. An ultrasound guided biopsy using real-time ultrasound was performed for the irregular shaped lesion located in the right breast at 12 o'clock posterior depth. The skin was prepped in the usual manner. Local anesthetic was administered to the access site. The abnormality was approached from the lateral aspect. A biopsy needle was placed adjacent to the abnormality under ultrasound guidance. Once the needle was documented to be in the correct location, five specimens were obtained using the Mammotome biopsy system. A clip was inserted into the biopsy cavity. The specimens were sent to the laboratory for pathological analysis. IMPRESSION: ULTRASOUND GUIDED BIOPSY BENIGN Ultrasound guided biopsy of the lesion in the right breast at 12 o'clock posterior depth was successful. Pathology indicates benign inflammation (IF), fat necrosis (FN), and histocytes. Pathology results are concordant with ultrasound findings. Return to annual mammogram screening schedule is recommended. Results will be communicated to the referring clinician. This exam was interpreted at Station ID: [id number]. Alex hyde,krmalou/:01/02/2019 20:47:48
--- NOTE | 2018-12-28 | PATH_ITS ---
[facility] Accession Number: [id number] . 01 Material submitted: . breast - RT BREAST BX . 01 Clinical history: . RIGHT BREAST MASS . 01 Diagnosis: Right Breast, Mass, Biopsy: Fibrofatty breast parenchyma with fat necrosis and histiocytic inflammation. Background with early fibrosis and focal hemosiderin-laden macrophages. Negative for atypia, carcinoma in situ, and malignancy. MRV 01/01/2019 1650 Local . 01 Electronically signed: . Rachel Hooks MD, Pathologist NPI- [id number] . 01 Gross description: . Received one formalin-filled container labeled with the patient's name and labeled RT breast. The specimen is received with a plastic filter in container, sample loose in container and consists of multiple yellow-guerrero pieces of tissue which range in size from 0.1 x 0.1 x 0.1 cm to 0.8 x 0.2 x 0.2 cm. The specimen is filtered, wrapped, and entirely submitted in one cassette. Collection date: 12/28/2018. Collection time: 10:30 per container. Total fixation time: 12 hours, up to 24. ([id number]) /ALESHIA 12/29/2018 0304 Local . 01 Microscopic: . Immunohistochemical stains, with appropriately staining external controls, are performed on block A1 in addition to examination of deeper slides. No polarizable material is identified. The immunoprofile of the areas of histiocytic inflammation with fat necrosis, with focal areas of vaguely granulomatous inflammation, is as follows: . ALO: Negative (only positive in benign breast parenchyma). CD68: Diffusely positive. Beta-catenin: Negative (no nuclear staining). CD34: Predominantly negative (only highlighting vessels). GMS for fungus: Negative. AFB for mycobacterial organisms: Negative. All stains have apprropriately positive external controls. . * This test was developed and its performance characteristics determined by [employer]. It has not been cleared or approved by the U.S. Food and Drug Administration. The FDA has determined that such clearance or approval is not necessary. This test is used for clinical purposes. It should not be regarded as investigational or for research. . 01 Pathologist provided ICD-10: N63.0 . 01 CPT . 554812, B74169, R28595, 287464, 018721 Performed at: 01 [facility] [address] [place] [address] [address], [place], [place] [id number] MD Zach Medina MD Phone: [phone]
== END ==
PROVIDERS: PCP Family Medicine; Visit Provider Family Medicine
DX: N64.1 Fat necrosis of breast (principal); N60.31 Fibrosclerosis of right breast; N61.0 Mastitis without abscess
CPT/HCPCS: 19083; 77065

== ENCOUNTER → 2020-01-11 15:13 | Outpatient (CLI) | payer MEDICARE, OTHER, SELFPAY ==
--- NOTE | 2020-01-11 | DI.MG.S_ITS ---
BILATERAL DIGITAL SCREENING MAMMOGRAM 3D/2D WITH CAD: 01/11/2020 CLINICAL: Routine screening. Comparison is made to exams dated: 12/04/2018 mammogram, 12/02/2016 mammogram, 12/16/2014 mammogram - [facility], and 10/11/2012 mammogram - [facility]. The tissue of both breasts is heterogeneously dense. This may lower the sensitivity of mammography. Current study was also evaluated with a Computer Aided Detection (CAD) system. There is a biopsy clip in the right breast. No significant masses, calcifications, or other findings are seen in either breast. There has been no significant interval change. IMPRESSION: NEGATIVE There is no mammographic evidence of malignancy. A 1 year screening mammogram is recommended. This exam was interpreted at Station ID: [id number]. NOTE: For mammograms, a report in lay terms will be sent to the patient. Approximately 15% of breast malignancies will not be visualized mammographically. In the management of a palpable breast mass, a negative mammogram must not discourage biopsy of a clinically suspicious lesion. Electronically Signed By: Sesar rutledge/laurie:01/11/2020 17:18:16 letter sent: Normal Exam ACR BI-RADS Category 1: Negative 3341F
== END ==
PROVIDERS: PCP Family Medicine; Referring Provider Family Medicine; Visit Provider Family Medicine
DX: Z12.31 Encounter for screening mammogram for malignant neoplasm of breast (principal)
CPT/HCPCS: 77063; 77067

== ENCOUNTER → 2021-03-05 10:24 | Outpatient (CLI) | payer MEDICARE, OTHER, SELFPAY ==
--- NOTE | 2021-03-05 | DI.MG.S_ITS ---
BILATERAL DIGITAL SCREENING MAMMOGRAM 3D/2D WITH CAD: 03/05/2021 CLINICAL: Routine screening. Family history of breast cancer. Comparison is made to exams dated: 01/11/2020 mammogram, 12/04/2018 mammogram, and 12/02/2016 mammogram - [facility]. There are scattered fibroglandular elements in both breasts. Current study was also evaluated with a Computer Aided Detection (CAD) system. There is a biopsy clip in the right breast. No significant masses, calcifications, or other findings are seen in either breast. There has been no significant interval change. IMPRESSION: NEGATIVE There is no mammographic evidence of malignancy. A 1 year screening mammogram is recommended. This exam was interpreted at Station ID: [id number]. NOTE: For mammograms, a report in lay terms will be sent to the patient. Approximately 15% of breast malignancies will not be visualized mammographically. In the management of a palpable breast mass, a negative mammogram must not discourage biopsy of a clinically suspicious lesion. Electronically Signed By: Manuel jennings/laurie:03/05/2021 12:38:22 letter sent: Normal Exam ACR BI-RADS Category 1: Negative 3341F
== END ==
PROVIDERS: PCP Family Medicine; Referring Provider Family Medicine; Visit Provider Family Medicine
DX: Z12.31 Encounter for screening mammogram for malignant neoplasm of breast (principal); Z80.3 Family history of malignant neoplasm of breast
CPT/HCPCS: 77063; 77067

== ENCOUNTER → 2022-01-26 11:48 | Outpatient (CLI) | payer MEDICARE, OTHER, SELFPAY ==
--- NOTE | 2022-01-26 | DI.CT.S_ITS ---
PROCEDURE: CT HEAD/BRAIN WO CON INDICATIONS: Tinnitus, right ear TECHNIQUE: Noncontrast 4.5 mm thick angled axial sections acquired from the foramen magnum to the vertex, with coronal and sagittal reformats. For radiation dose reduction, the following was used: automated exposure control, adjustment of mA and/or kV according to patient size. COMPARISON: None. FINDINGS: Image quality: Excellent. CSF spaces: Basal cisterns are patent. No extra-axial fluid collections. The ventricles are symmetric in size and shape. Brain: No intracranial bleeds or masses. There is cerebral volume loss for age, with resultant ventricular and sulcal prominence. There are periventricular and deep white matter chronic small vessel ischemic changes. There is intracranial internal carotid artery atherosclerosis. Skull and face: Calvarium and visualized facial bones appear intact, without suspicious lesions. Auditory canals are grossly unremarkable. Sinuses: Visualized sinuses and mastoids are clear. IMPRESSION: 1. No acute intracranial process. If tinnitus is remains of concern, CT or MRI IAC protocol is recommended. 2. Moderate atrophy and chronic microvascular ischemic changes. Dictated by: Eveline Narayan M.D. on 01/26/2022 at 12:29 Approved by: Eveline Narayan M.D. on 01/26/2022 at 12:30
== END ==
PROVIDERS: PCP Family Medicine; Referring Provider Family Medicine; Visit Provider Family Medicine
DX: H93.11 Tinnitus, right ear (principal); I65.9 Occlusion and stenosis of unspecified precerebral artery
CPT/HCPCS: 70450

== ENCOUNTER → 2022-04-21 10:26 | Outpatient (CLI) | payer MEDICARE, OTHER, SELFPAY ==
--- NOTE | 2022-04-21 | DI.MG.S_ITS ---
BILATERAL DIGITAL SCREENING MAMMOGRAM 3D/2D WITH CAD: 04/21/2022 CLINICAL: Routine screening. Family history of breast cancer. Comparison is made to exams dated: 03/05/2021 mammogram, 01/11/2020 mammogram, and 12/04/2018 mammogram - [facility]. There are scattered areas of fibroglandular density in both breasts (category b / 25%-50% glandular tissue). Current study was also evaluated with a Computer Aided Detection (CAD) system. There is a biopsy clip in the right breast. No significant masses, calcifications, or other findings are seen in either breast. There has been no significant interval change. IMPRESSION: BENIGN There is no mammographic evidence of malignancy. A 1 year screening mammogram is recommended. Based on the Tyrer Cuzick model (a risk assessment model) the patient's lifetime risk is 2.4% and her 10 year risk is 0.0%. According to the ACR, ACS, and NCCN guidelines, an annual breast MRI exam along with mammogram is recommended if the patient's lifetime risk is 20% or greater. This exam was interpreted at Station ID: [id number]. NOTE: For mammograms, a report in lay terms will be sent to the patient. Approximately 15% of breast malignancies will not be visualized mammographically. In the management of a palpable breast mass, a negative mammogram must not discourage biopsy of a clinically suspicious lesion. Electronically Signed By: Stevenson peng/laurie:04/21/2022 11:04:26 letter sent: Normal Exam ACR BI-RADS Category 2: Benign Finding(s) 3342F
== END ==
PROVIDERS: PCP Family Medicine; Referring Provider Family Medicine; Visit Provider Family Medicine
DX: Z12.31 Encounter for screening mammogram for malignant neoplasm of breast (principal); Z80.3 Family history of malignant neoplasm of breast
CPT/HCPCS: 77063; 77067

== ENCOUNTER → 2023-03-28 11:41 | Outpatient (CLI) | payer MEDICARE, OTHER, SELFPAY ==
--- NOTE | 2023-03-28 11:44 | DI.RAD.S_ITS ---
PROCEDURE: XR LUMBAR SPINE 2-3V INDICATIONS: LOW BACK PAIN TECHNIQUE: 3 views of the lumbar spine were acquired. COMPARISON: [facility], , L-SPINE 2-3 VIEWS, 09/25/2009, 14:48. FINDINGS: Bones: There is grade 1 anterolisthesis of L4 on L5, unchanged. Multilevel nwyz-kp-aeqdfebo disc space narrowing is present most severe at L5-S1. Multilevel foraminal narrowing is present most severe at L4-5 and L5-S1. There has been overall mild progression compared to prior exam.. No vertebral body compression fractures. No suspicious bony lesions. Soft tissues: Overlying bowel gas pattern is normal. No suspicious soft tissue calcifications. IMPRESSION: Degenerative changes most severe at L4-5, L5-S1. Dictated by: Eveline Narayan M.D. on 03/28/2023 at 15:02 Approved by: Eveline Narayan M.D. on 03/28/2023 at 15:03
--- NOTE | 2023-03-28 11:44 | DI.RAD.S_ITS ---
PROCEDURE: XR HIP W PEL IF DONE RT 2V INDICATIONS: LOW BACK PAIN TECHNIQUE: AP pelvis with lateral view(s) of the right hip(s). COMPARISON: None. FINDINGS: Bones: No fractures or dislocations. Pelvic ring appears intact. No suspicious bony lesions. Moderate bilateral degenerative hip joint space narrowing. No erosions. Soft tissues: The visualized bowel gas pattern is normal. No suspicious soft tissue calcifications. IMPRESSION: Moderate bilateral hip arthritic change. Dictated by: Eveline Narayan M.D. on 03/28/2023 at 15:02 Approved by: Eveline Narayan M.D. on 03/28/2023 at 15:02
== END ==
PROVIDERS: PCP Family Medicine; Referring Provider Family Medicine; Visit Provider Family Medicine
DX: M47.816 Spondylosis without myelopathy or radiculopathy, lumbar region (principal); M47.817 Spondylosis without myelopathy or radiculopathy, lumbosacral region; M54.50 Low back pain, unspecified; R10.9 Unspecified abdominal pain; R30.0 Dysuria
CPT/HCPCS: 72100; 73502

== ENCOUNTER → 2023-04-04 14:50 | Outpatient (CLI) | payer MEDICARE, OTHER, SELFPAY ==
--- NOTE | 2023-04-04 | DI.US.S_ITS ---
PROCEDURE: US ABDOMEN COMPLETE INDICATIONS: UNSPECIFIED ABDOMINAL PAIN. DYSURIA. TECHNIQUE: Real-time scanning was performed of the abdominal and retroperitoneal organs, with image documentation. COMPARISON: None. FINDINGS: Liver: Liver is normal in size and homogeneous in echotexture. A simple 1.1 cm cyst is present within the anterior liver. Gallbladder: Surgically absent. Biliary ducts: Intrahepatic bile ducts are non-dilated. Extrahepatic bile duct caliber measures 10.9 mm. Normal is 6-7 mm or less in diameter, or 10 mm or less post-cholecystectomy. Pancreas: Visualized portions of the pancreas are sonographically normal. The pancreatic tail is not seen. Spleen: Spleen is normal in size and homogeneous in echotexture. A small splenule is present at the hilum. Kidneys: There is thinning of the right renal cortex.. Right kidney measures 10.4 cm long; left kidney measures 10.2 cm long. No hydronephrosis or nephrolithiasis. No solid masses. Aorta: Visualized aorta is normal in caliber at less than 3 cm. Iliacs: Proximal common iliac arteries are normal in caliber at less than 2.5 cm. IVC: Intrahepatic inferior vena cava is patent. Miscellaneous: No free abdominal fluid. The prevoid bladder volume is 288 cc. There is no postvoid residual. No sonographic abnormality is visualized in the right lower quadrant in the area of pain. IMPRESSION: 1. Cortical thinning of the right kidney. 2. No sonographic abnormality in the right lower quadrant in the area of pain. Dictated by: Brooke Malhotra M.D. on 04/04/2023 at 17:31 Approved by: Brooke Malhotra M.D. on 04/04/2023 at 17:33
== END ==
PROVIDERS: PCP Family Medicine; Referring Provider Family Medicine; Visit Provider Family Medicine
DX: M54.50 Low back pain, unspecified (principal); R10.819 Abdominal tenderness, unspecified site; R10.84 Generalized abdominal pain; R10.30 Lower abdominal pain, unspecified; R30.0 Dysuria; Z90.49 Acquired absence of other specified parts of digestive tract
CPT/HCPCS: 76700

== ENCOUNTER → 2023-06-13 10:27 | Outpatient (CLI) | payer MEDICARE, OTHER, SELFPAY ==
--- NOTE | 2023-06-13 | DI.CT.S_ITS ---
PROCEDURE: CT ABDOMEN PELVIS W CON INDICATIONS: Abdominal and pelvic pain TECHNIQUE: After the administration of intravenous contrast, axial sections acquired from the lung bases to the pubic symphysis. Coronal and sagittal reformats were performed. For radiation dose reduction, the following was used: automated exposure control, adjustment of mA and/or kV according to patient size. COMPARISON: [facility], CT, CT ABDOMEN PELVIS W CON, 05/03/2018, 15:30. FINDINGS: Image quality: Diagnostic. Lower Chest: No significant findings. ABDOMEN: Liver: No solid mass. Gallbladder: Status post cholecystectomy Biliary ducts: No biliary dilation. Persistent prominence of the common bile duct measuring up to 1.3 cm in diameter. This is likely related to post cholecystectomy physiologic dilatation. Pancreas: No ductal dilation. Spleen: Size is within normal limits. Adrenal Glands: No adrenal nodules. Kidneys and Ureters: No hydronephrosis. No solid mass. No complex renal cystic lesion which requires follow up. Bilateral ureters are normal in course and caliber. There is a 0.2 x 0.5 cm nonobstructing left renal stone. Stomach and Bowel: Normal colonic caliber, without significant wall thickening. No evidence for bowel obstruction. Peritoneum: No abnormal intraperitoneal fluid. No free air. Ventral Wall: There is a fat-containing umbilical hernia without acute inflammation. Abdominal Nodes: No retroperitoneal or mesenteric adenopathy by size criteria. Vessels: Scattered atherosclerotic calcifications of the abdominal aorta and iliac vessels without aneurysmal dilatation. The inferior vena cava appears patent. PELVIS: Pelvic Organs: Reproductive organs are unremarkable as imaged. Bladder: No bladder wall thickening, accounting for underdistention. Pelvic Nodes: No enlarged lymph nodes. Miscellaneous: No inguinal hernias are seen. Surgical clips noted in the right inguinal region as before. Right inguinal and proximal, medial right upper thigh varices noted within the subcutaneous tissue. Bones: No acute vertebral body compression fractures. Multilevel spondylitic changes throughout the imaged spine. No suspicious osseous lesions. IMPRESSION: CT abdomen and pelvis without acute abnormalities to explain patient's symptoms. There is a 0.2 x 0.5 cm nonobstructing left renal stone. No hydronephrosis. No perinephric stranding. Other chronic findings as above. Dictated by: Manuel Van M.D. on 06/13/2023 at 14:53 Approved by: Manuel Van M.D. on 06/13/2023 at 15:00
[2023-06-13 11:33] LABS: Estimated Glomerular Filt Rate > 60 mL/min (>60)
== END ==
LOC: CT 10:28
PROVIDERS: Radiology Diagnostic Radiology; PCP Family Medicine; Referring Provider Family Medicine; Visit Provider Family Medicine
DX: R10.2 Pelvic and perineal pain (principal); K42.9 Umbilical hernia without obstruction or gangrene; N20.0 Calculus of kidney; I70.0 Atherosclerosis of aorta; Z90.49 Acquired absence of other specified parts of digestive tract
CPT/HCPCS: 36415; 74177; 82565; Q9967

== ENCOUNTER → 2023-06-16 12:32 | Outpatient (CLI) | payer MEDICARE, OTHER, SELFPAY ==
--- NOTE | 2023-06-16 12:33 | DI.MG.S_ITS ---
BILATERAL DIGITAL SCREENING MAMMOGRAM 3D/2D WITH CAD: 06/16/2023 CLINICAL: Routine screening. Family history of breast cancer. Comparison is made to exams dated: 04/21/2022 mammogram, 03/05/2021 mammogram, and 01/11/2020 mammogram - [facility]. There are scattered areas of fibroglandular density in both breasts (category b / 25%-50% glandular tissue). Current study was also evaluated with a Computer Aided Detection (CAD) system. There is a biopsy clip in the right breast. No significant masses, calcifications, or other findings are seen in either breast. There has been no significant interval change. IMPRESSION: NEGATIVE There is no mammographic evidence of malignancy. A 1 year screening mammogram is recommended. Based on the Tyrer Cuzick model (a risk assessment model) the patient's lifetime risk is 6.2% and her 10 year risk is 0.0%. According to the ACR, ACS, and NCCN guidelines, an annual breast MRI exam along with mammogram is recommended if the patient's lifetime risk is 20% or greater. This exam was interpreted at Station ID: [id number]. NOTE: For mammograms, a report in lay terms will be sent to the patient. Approximately 15% of breast malignancies will not be visualized mammographically. In the management of a palpable breast mass, a negative mammogram must not discourage biopsy of a clinically suspicious lesion. Electronically Signed By: Sesar rutledge/laurie:06/16/2023 13:16:55 letter sent: Normal Exam ACR BI-RADS Category 1: Negative 3341F
== END ==
PROVIDERS: PCP Family Medicine; Referring Provider Family Medicine; Visit Provider Family Medicine
DX: Z12.31 Encounter for screening mammogram for malignant neoplasm of breast (principal); Z80.3 Family history of malignant neoplasm of breast; R92.323 Mammographic fibroglandular density, bilateral breasts
CPT/HCPCS: 77063; 77067

== ENCOUNTER → 2023-06-27 13:04 | Outpatient (CLI) | payer MEDICARE, OTHER, SELFPAY ==
--- NOTE | 2023-06-27 13:08 | DI.RAD.S_ITS ---
PROCEDURE: XR THORACIC SPINE 2V INDICATIONS: ABD PAIN TECHNIQUE: 3 views of the thoracic spine were acquired. COMPARISON: [facility], CT, CT ABDOMEN PELVIS W CON, 06/13/2023, 12:00. [facility], CR, XR LUMBAR SPINE 2-3V, 06/27/2023, 13:17. FINDINGS: Bones: No fractures or dislocations. Minimal scoliosis. Bridging vertebral body osteophytes in the thoracic spine. No suspicious bony lesions. 12 pairs of ribs are noted, and appear intact where visualized. Soft tissues: No paravertebral stripe thickening. Cholecystectomy clips. IMPRESSION: No thoracic compression fracture. Dictated by: Sesar Bueno M.D. on 06/27/2023 at 14:12 Approved by: Sesar Bueno M.D. on 06/27/2023 at 14:21
--- NOTE | 2023-06-27 13:08 | DI.RAD.S_ITS ---
PROCEDURE: XR LUMBAR SPINE 2-3V INDICATIONS: ABD PAIN TECHNIQUE: 3 views of the lumbar spine were acquired. COMPARISON: [facility], ROSA, XR LUMBAR SPINE 2-3V, 03/28/2023, 11:53. [facility], CR, L-SPINE 2-3 VIEWS, 09/25/2009, 14:48. FINDINGS: Bones: 5 [id number] vertebrae are present. Anterolisthesis of L4 on L5 measuring 0.5 cm. Small vertebral body osteophytes. Mild disc space height loss. Facet joint hypertrophy. No vertebral body compression fractures. No suspicious bony lesions. Soft tissues: Overlying bowel gas pattern is normal. No suspicious soft tissue calcifications. Cholecystectomy clips. IMPRESSION: No compression fracture. Bbed-ou-udzcltss degenerative changes and DDD. Dictated by: Sesar Bueno M.D. on 06/27/2023 at 14:11 Approved by: Sesar Bueno M.D. on 06/27/2023 at 14:12
== END ==
PROVIDERS: PCP Family Medicine; Referring Provider Family Medicine; Visit Provider Family Medicine
DX: M47.816 Spondylosis without myelopathy or radiculopathy, lumbar region (principal); M51.36 Other intervertebral disc degeneration, lumbar region; R10.9 Unspecified abdominal pain
CPT/HCPCS: 72070; 72100

== ENCOUNTER → 2023-07-20 10:34 | Outpatient (CLI) | payer MEDICARE, OTHER, SELFPAY ==
--- NOTE | 2023-07-20 10:37 | DI.MRI.S_ITS ---
PROCEDURE: MR LUMBAR SPINE WO CON INDICATIONS: Low back pain, unspecified TECHNIQUE: Noncontrast sagittal T1 spin echo and T2 fast echo, sagittal STIR, axial T1 and T2 fast spin echo through the lumbar spine. Axial and oblique coronal T1 spin echo and STIR through the sacrum. In cases with scoliosis, additional coronal T2 fast spin echo may be performed. COMPARISON: None. FINDINGS: Image quality: Excellent. Alignment and Curvature: Grade 1 anterior spondylolisthesis L4-5 Bone Marrow: T12 typical vertebral hemangioma noted Spinal Cord: Conus medullaris terminates at the L1 level. Visualized cord demonstrates normal signal and size. Paraspinous Soft Tissues: No paravertebral masses. T12-L1: Normal appearance. L1-L2: Disc space is preserved. No central or foraminal stenosis L2-L3: Disc space is preserved. Hypertrophic facet joints and ligamentum flavum laxity. Moderate central stenosis. Mild bilateral foraminal stenosis L3-L4: Disc space is preserved. Hypertrophic facet joints and ligamentum flavum laxity. Moderate central stenosis present. No right and mild left foraminal stenosis L4-L5: Disc space narrowing and posterior disc bulge present. Mild central stenosis. Hypertrophic facet joints without foraminal stenosis L5-S1: Disc space narrowing and hypertrophic facet joints. No central stenosis. No foraminal stenosis. IMPRESSION: Multilevel degenerative disc disease and arthropathy results in varying degrees of central and foraminal stenosis including moderate central stenosis L2-3 and L3-4. Grade 1 anterior spondylolisthesis L4-5 Approved by: Ramos Martínez M.D. on 07/20/2023 at 18:17
--- NOTE | 2023-07-20 10:37 | DI.MRI.S_ITS ---
PROCEDURE: MR THORACIC SPINE WO CON INDICATIONS: Low back pain, unspecified TECHNIQUE: Noncontrast sagittal T1 spine echo and T2 fast spin echo, sagittal STIR, and T2 fast spin echo through the thoracic spine. COMPARISON: None. FINDINGS: Image quality: Excellent. Alignment and Curvature: There is normal bony alignment. Bone Marrow: Marrow is of normal overall signal. No acute vertebral body compression fractures. Spinal Cord: Visualized spinal cord is normal in size and signal. Paraspinous Soft Tissues: No paravertebral masses. Miscellaneous: On axial images, central canal and foramina appear widely patent at all scanned levels. Disc space is maintained. Anterolateral osteophytes in the lower thoracic spine IMPRESSION: Mild degenerative disc disease in the lower thoracic spine without central or foraminal stenosis throughout the exam Approved by: Ramos Martínez M.D. on 07/20/2023 at 15:45
== END ==
LOC: MRI 10:36
PROVIDERS: PCP Family Medicine; Referring Provider Family Medicine; Visit Provider Family Medicine
DX: M51.34 Other intervertebral disc degeneration, thoracic region (principal); M51.36 Other intervertebral disc degeneration, lumbar region; M47.816 Spondylosis without myelopathy or radiculopathy, lumbar region; M47.817 Spondylosis without myelopathy or radiculopathy, lumbosacral region; M48.061 Spinal stenosis, lumbar region without neurogenic claudication; M43.16 Spondylolisthesis, lumbar region; M54.50 Low back pain, unspecified
CPT/HCPCS: 72146; 72148

== ENCOUNTER 2023-09-28 08:09 | Outpatient (CLI) | payer MEDICARE, OTHER, SELFPAY ==
[2023-09-28 08:55] VITALS: BP 172/79; PULSE 77; RESP 16; O2SAT 98
--- NOTE | 2023-09-28 09:00 | DI.RAD.S_ITS ---
PROCEDURE: PAIN L INTERLAMINAR/CAUDAL INJ INDICATIONS: RADICULOPATHY COMPARISON: None. FINDINGS: Fluoroscopic spot filming was performed to verify placement of spinal needles at the L1 level(s), as labeled on the films. Appropriate location(s) of the needle tip(s) was confirmed by injection of iodinated contrast. IMPRESSION: Fluoro guidance was provided intraoperatively for L1-2 interlaminar epidural steroid injection performed by the ordering physician. Dictated by: López Ram M.D. on 09/28/2023 at 13:17 Approved by: López Ram M.D. on 09/28/2023 at 13:20
[2023-09-28 09:21] VITALS: BP 178/81; PULSE 67; RESP 20; O2SAT 100
[2023-09-28] MEDS: DEXAMETHASONE 10 MG/ML VIAL INJ (09:21)
[2023-09-28] MEDS: iopamidoL 15 ML VIAL 3 ML INJ (09:21)
[2023-09-28 09:25] VITALS: BP 176/81; PULSE 68; RESP 17; O2SAT 99
[2023-09-28 09:30] VITALS: BP 180/80; PULSE 73; RESP 15; O2SAT 97
--- NOTE | 2023-09-28 12:27 | P.PCN_ITS ---
Date/Time/Diagnoses Date of procedure: 09/28/23 Time of procedure: 09:00 Procedure Notes Physician: Krish Jimenez Total Fluoroscopy time (seconds): 10 Total sedation minutes: 0 Procedure in detail & Post-procedure care: L1-2 Interlaminar Epidural Steroid Injection Indications: Vianey is presenting for treatment of lumbar radiculopathy with low back and leg pain. Preoperative diagnosis: Lumbar radiculopathy Postoperative diagnosis: Same Focused Examination: Ax3 Mood and affect are normal Vital Signs: VSS Consent: Following review of allergies and potential side effects/complications, including, but not necessarily limited to, infection, allergic reaction, local tissue breakdown, stroke, temporary or permanent nerve injury, paralysis, and possible , the patient indicated that they understood and agreed to proceed.? An informed consent document was signed by the patient, witnessed by a nurse and placed in the patient's chart.? Additionally, other treatment options including medications and physical therapy were reviewed with the patient. All questions were answered. Site was then marked. Anesthesia: Local Position: Prone Monitoring: NIBP, Pulse oximetry, 3 lead EKG Needle used: 18 G 3.5? Tuohy Contrast: Isovue 300M Injectate: Dexamethasone 10 mg with 1% lidocaine 2 mL Technique: The skin was prepped with chloraprep and then draped in a sterile fashion. Time out was performed as per protocol. Oxygen applied via NC. Skin and subcutaneous structures of the needle entry site was then infiltrated with 3 mL of lidocaine 1%. Under AP, lateral and contralateral oblique fluoroscopic control, the Tuohy needle was guided into the L1-2 epidural space. The space was accessed with loss of resistance technique. Isovue 300M was then injected and the spread was consistent with the epidural space. There was no evidence for intravascular or intrathecal uptake. After negative aspiration, the above- mentioned injectate was then slowly administered and the needle withdrawn. The patient expressed no unusual discomfort or paresthesias during the injection. Band-Aids applied to injection sites. EBL: less than 1 ml Complications: None Post Procedure: Patient was taken to the recovery and monitored. The patient was provided a Pain Log to continue to record the patient's response to the target- specific procedure prior to the patient's follow-up visit with the referring physician. Patient was stable upon discharge. Detailed post procedure instructions were provided. Patient was asked to call in the event of worsening pain, fever, weakness, numbness or bladder or bowel incontinence.
== END 2023-09-28 09:35 | disposition home or self-care (01) ==
LOC: RAD 08:10
PROVIDERS: PCP Family Medicine; Referring Provider Anesthesiology; Visit Provider Anesthesiology
DX: M54.16 Radiculopathy, lumbar region (principal)
CPT/HCPCS: 62323; J1100

== ENCOUNTER → 2024-01-31 12:07 | Outpatient (CLI) | payer MEDICARE, OTHER, SELFPAY ==
--- NOTE | 2024-01-31 12:10 | DI.RAD.S_ITS ---
PROCEDURE: XR HIP W PEL IF DONE RT 2V INDICATIONS: Pain in right hip TECHNIQUE: Two views of the hip were acquired. COMPARISON: [facility], CR, XR HIP W PEL IF DONE RT 2V, 03/28/2023, 11:53. FINDINGS: Bones: There are no osseous abnormalities. SI and hip joints: Mild bilateral SI and hip degenerative change is stable. Severe L5-S1 degenerative disc disease stable. Soft tissues: No soft tissue swelling, calcification or mass. Surgical clips in the right proximal femoral region seen as before IMPRESSION: Degeneration-stable Dictated by: Jose Marrero M.D. on 02/01/2024 at 10:27 Approved by: Jose Marrero M.D. on 02/01/2024 at 10:28
== END ==
PROVIDERS: PCP Family Medicine; Referring Provider Family Medicine; Visit Provider Family Medicine
DX: M25.551 Pain in right hip (principal); M51.379 Other intervertebral disc degeneration, lumbosacral region without mention of lumbar back pain or lower extremity pain
CPT/HCPCS: 73502

== ENCOUNTER → 2024-07-03 16:12 | Outpatient (CLI) | payer MEDICARE, OTHER, SELFPAY ==
--- NOTE | 2024-07-03 16:14 | DI.MG.S_ITS ---
MM screening mammo BI: 07/03/2024. BI-RADS: 2 CLINICAL: 78-year old female for bilateral screening mammogram. Tyrer-Cuzick lifetime risk of 4.7%. Current reported family history of breast cancer: sister, sister's daughter, second sister and third sister. History of ovarian cancer in one first-degree relative. The patient had a prior right breast biopsy. PRIOR EXAMS 06/16/2023, 04/21/2022, 03/05/2021, 01/11/2020, 12/28/2018, 12/13/2018, 12/04/2018, 12/02/2016, 12/16/2014. MAMMOGRAPHY TECHNIQUE: 2D and 3D (tomosynthesis) digital mammographic views obtained, with additional images as needed for full coverage. Current study was also evaluated with a Computer Aided Detection (CAD) system. DENSITY B. There are scattered areas of fibroglandular density. MAMMOGRAPHY FINDINGS Right: Biopsy marker present on the right. Benign-appearing calcification noted on the right. There are no suspicious masses, calcifications, or other findings in the breast. Left: Benign-appearing calcification noted on the left. There are no suspicious masses, calcifications, or other findings in the breast. IMPRESSION: * No evidence of malignancy with benign findings. RECOMMENDATIONS Bilateral * Annual screening mammography. OVERALL ASSESSMENT CATEGORY BI-RADS-2: Benign. The [employer] recommends annual screening mammography beginning at age 40 for women with average risk of breast cancer. ELECTRONICALLY SIGNED: Holly Donaldson M.D. on 07/04/2024 at 01:33:11 PM PT Interpreting Station ID: [id number]
== END ==
LOC: MAMMO 16:14
PROVIDERS: PCP Family Medicine; Referring Provider Family Medicine; Visit Provider Family Medicine
DX: Z12.31 Encounter for screening mammogram for malignant neoplasm of breast (principal); Z80.3 Family history of malignant neoplasm of breast; Z80.41 Family history of malignant neoplasm of ovary
CPT/HCPCS: 77063; 77067

== ENCOUNTER → 2024-07-25 11:49 | Outpatient (CLI) | payer MEDICARE, OTHER, SELFPAY ==
--- NOTE | 2024-07-25 11:51 | DI.CT.S_ITS ---
PROCEDURE: CT ABDOMEN PELVIS W CON INDICATIONS: GENERALIZED ABDOMINAL PAIN TECHNIQUE: After the administration of intravenous contrast, axial sections acquired from the lung bases to the pubic symphysis. Coronal and sagittal reformats were performed. For radiation dose reduction, the following was used: automated exposure control, adjustment of mA and/or kV according to patient size. COMPARISON: [facility] [place], CT, CT ABDOMEN PELVIS W CON, 06/13/2023, 12:00. FINDINGS: Image quality: Diagnostic. Lower Chest: Bibasilar dependent atelectasis are seen posteriorly. Heart size is mildly enlarged, no pericardial effusion. Small hiatal hernia. ABDOMEN: Liver: No solid mass. Gallbladder: Gallbladder is surgically absent. Biliary ducts: No biliary dilation. Pancreas: No ductal dilation. Spleen: Size is within normal limits. Adrenal Glands: No adrenal nodules. Kidneys and Ureters: Nonobstructing left renal calculi are again seen. No hydronephrosis. No solid mass. No complex renal cystic lesion which requires follow up. Stomach and Bowel: There is no bowel obstruction. No gastric or small bowel wall thickening. Oral contrast is seen reaching mid to distal small bowel loops. Fluid-filled distal ileal loops are seen. Moderate fecal stasis throughout the colon is seen. No colonic wall thickening. No abscess collection. Peritoneum: No abnormal intraperitoneal fluid. No free air. Ventral Wall: No significant ventral hernia. Abdominal Nodes: No retroperitoneal or mesenteric adenopathy by size criteria. Vessels: Aorta and inferior vena cava are normal in size. PELVIS: Pelvic Organs: Unremarkable. Bladder: No bladder wall thickening, accounting for underdistention. Pelvic Nodes: No enlarged lymph nodes. Miscellaneous: No inguinal hernias are seen. Surgical clips in right inguinal region are seen. Bones: No aggressive osseous abnormality. IMPRESSION: 1. Nonspecific mild fluid filling of distal small bowel loops which can be seen in the case of low-grade enteritis suggest clinical correlation. No bowel obstruction. No other area of abnormal bowel wall thickening. Moderate constipation. No free fluid or free air. 2. Chronic findings are not significantly changed from prior study. Dictated by: López Ram M.D. on 07/25/2024 at 21:55 Approved by: López Ram M.D. on 07/25/2024 at 21:58
[2024-07-25 12:31] LABS: Estimated Glomerular Filt Rate > 60 mL/min (>60)
== END ==
PROVIDERS: PCP Family Medicine; Referring Provider Family Medicine; Visit Provider Family Medicine
DX: K59.00 Constipation, unspecified (principal); K44.9 Diaphragmatic hernia without obstruction or gangrene; J98.11 Atelectasis; I51.7 Cardiomegaly; R10.84 Generalized abdominal pain; Z90.49 Acquired absence of other specified parts of digestive tract
CPT/HCPCS: 36415; 74177; 82565; Q9967

== ENCOUNTER 2024-10-04 13:58 | Outpatient (CLI) | payer MEDICARE, OTHER, SELFPAY ==
[2024-10-04] VITALS (10 sets, daily range): BP systolic 140–186; BP diastolic 62–78; PULSE 45–58; RESP 14–38; TEMP 36.1; O2SAT 95–100
[2024-10-04] MEDS: MIDAZOLAM 2 MG/2 ML VIAL IV (15:54)
[2024-10-04] MEDS: iopamidoL 15 ML VIAL 3 ML INJ (15:57)
[2024-10-04] MEDS: BUPIVACAINE 0.5% (PF) 10 ML VIAL 2 ML INJ (15:57)
--- NOTE | 2024-10-04 16:13 | PM.PROC.IR.1 ---
Date/Time/Diagnoses Date of procedure: 10/04/24 Time of procedure: 16:13 Pre-procedure diagnosis: 1. FACET ARTHROPATHY Post-procedure diagnosis: same Procedure Notes Procedure: 1. Right L4, L5 and S1 MB BLOCKS LA Indications: Vianey is referred by Dr. Holm for treatment of Right Axial LBP. Physician: Mann Oliveira Total Fluoroscopy time (seconds): 9 Total sedation minutes: 12 Complications: none Procedure in detail & Post-procedure care: DESCRIPTION OF PROCEDURE Fluoroscopically guided, contrast-controlled right L4, L5 and S1 medial branch blocks with 0.5cc of 0.5% Marcaine. Following review of allergy and review of potential side effects and complications, including, but not necessarily limited to, infection, allergic reaction, local tissue breakdown, nerve injury, paralysis, stroke and possible , the patient indicated that the patient understood and agreed to proceed. An informed consent document was signed by the patient, witnessed by a nurse, and placed in the patient's chart. After review of previous anaesthesic history and IV conscious sedation the patient was deemed safe to proceed with today?s procedure with IV conscious sedation as ASA class II designation. Safety time-out was performed to confirm patient ID, procedure to be performed and site of procedure. IV sedation was accomplished with a combination of 2mg of Versed was administered by the RN after DO order, titrated to patient comfort during the course of the procedure while the patient remained responsive to all verbal commands In the prone position, following sterile prep and drape of the lumbar region, the right L4, L5 and S1 anatomical location of the medial branch of the dorsal ramus was identified fluoroscopically. Subsequently an anesthetic skin wheal using 1% lidocaine solution was initiated at each of the anatomical spots. Subsequently then a 22-gauge 3.5-inch spinal needle was atraumatically introduced and advanced under fluoroscopic guidance at each of the corresponding sites at the right L4, L5 and S1 MB. After negative aspiration, 0.2 cc of Isovue 200 was injected, confirming placement without vascular or intrathecal uptake. Subsequently then 0.5 cc of 0.5% Marcaine solution was injected at each of the corresponding sites at the right L4, L5 and S1 medial branch locations. The patient tolerated the procedure well without signs or symptoms of complications. The procedure tolerated the procedure well without signs or symptoms of complications prior to transfer to the recovery area continued monitoring without incident. Post-procedure, the patient was monitored initiating provocative activities to measure the amount of relief from block of the facetogenic pain. The patient reported a VAS of 7 prior to the procedure and a post-procedure VAS of 1. It has been a pleasure to assist in the diagnostic and therapeutic care of your patient. POST OP INSTRUCTIONS The patient was provided with a Pain Log to complete over the next several hours and subsequent days prior to the patient's follow up with the ordering physician. 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 The patient is aware, was provided, once again, with a Pain Log and will follow up with the referring physician for review and clinical correlation.
== END 2024-10-04 16:35 | disposition home or self-care (01) ==
LOC: RAD 13:59
PROVIDERS: PCP Family Medicine; Referring Provider Physical Medicine & Rehabilitation; Visit Provider Physical Medicine & Rehabilitation
DX: M47.816 Spondylosis without myelopathy or radiculopathy, lumbar region (principal); M47.817 Spondylosis without myelopathy or radiculopathy, lumbosacral region
CPT/HCPCS: 64493; 64494; 99152; J2250

== ENCOUNTER 2025-03-07 13:32 | Outpatient (CLI) | payer MEDICARE, OTHER, SELFPAY ==
[2025-03-07] VITALS (8 sets, daily range): BP systolic 136–189; BP diastolic 64–100; PULSE 61–72; RESP 14–20; TEMP 36.3; O2SAT 95–99
[2025-03-07] MEDS: MIDAZOLAM 2 MG/2 ML VIAL IV (15:24)
[2025-03-07] MEDS: LIDOCAINE 2% INJ MDV 20ML 5 ML INJ (15:27)
--- NOTE | 2025-03-07 15:40 | P.PCN_ITS ---
Date/Time/Diagnoses Date of procedure: 03/07/25 Time of procedure: 15:40 Pre-procedure diagnosis: Lumbar Facet Arthropathy Post-procedure diagnosis: same Procedure Notes Procedure: 1. Right L4, L5 and S1 MB BLOCKS SA Indications: Vianey is referred by Dr. Holm for treatment of Right Axial LBP. Physician: Mann Oliveira Total Fluoroscopy time (seconds): 6 Total sedation minutes: 12 Complications: none Procedure in detail & Post-procedure care: DESCRIPTION OF PROCEDURE Fluoroscopically guided, contrast-controlled right L4, L5 and S1 medial branch blocks with 0.5cc of 2% Lidocaine. Following review of allergy and review of potential side effects and complications, including, but not necessarily limited to, infection, allergic reaction, local tissue breakdown, nerve injury, paralysis, stroke and possible , the patient indicated that the patient understood and agreed to proceed. An informed consent document was signed by the patient, witnessed by a nurse, and placed in the patient's chart. After review of previous anaesthesic history and IV conscious sedation the patient was deemed safe to proceed with today?s procedure with IV conscious sedation as ASA class II designation. Safety time-out was performed to confirm patient ID, procedure to be performed and site of procedure. IV sedation was accomplished with a combination of 2mg of Versed was administered by the RN after DO order, titrated to patient comfort during the course of the procedure while the patient remained responsive to all verbal commands In the prone position, following sterile prep and drape of the lumbar region, the right L4, L5 and S1 anatomical location of the medial branch of the dorsal ramus was identified fluoroscopically. Subsequently an anesthetic skin wheal using 1% lidocaine solution was initiated at each of the anatomical spots. Subsequently then a 22-gauge 3.5-inch spinal needle was atraumatically introduced and advanced under fluoroscopic guidance at each of the corresponding sites at the right L4, L5 and S1 MB. After negative aspiration, 0.2 cc of Isovue 200 was injected, confirming placement without vascular or intrathecal uptake. Subsequently then 0.5 cc of 2% Lidocaine solution was injected at each of the corresponding sites at the right L4, L5 and S1 medial branch locations. The patient tolerated the procedure well without signs or symptoms of complications. The procedure tolerated the procedure well without signs or symptoms of complications prior to transfer to the recovery area continued monitoring without incident. Post-procedure, the patient was monitored initiating provocative activities to measure the amount of relief from block of the facetogenic pain. The patient reported a VAS of 7 prior to the procedure and a post-procedure VAS of 1. It has been a pleasure to assist in the diagnostic and therapeutic care of your patient. POST OP INSTRUCTIONS The patient was provided with a Pain Log to complete over the next several hours and subsequent days prior to the patient's follow up with the ordering physician. 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 The patient is aware, was provided, once again, with a Pain Log and will follow up with the referring physician for review and clinical correlation.
--- NOTE | 2025-03-07 16:44 | PC.NURSE ---
2 vials (4 mg) of midazolam pulled from [facility]. Only 2 mg given to patient as first vial dropped on the floor and broke. Witnessed by Dr. Mann Prabhakar.
== END 2025-03-07 16:00 | disposition home or self-care (01) ==
LOC: RAD 13:33
PROVIDERS: PCP Family Medicine; Referring Provider Physical Medicine & Rehabilitation; Visit Provider Physical Medicine & Rehabilitation
DX: M47.816 Spondylosis without myelopathy or radiculopathy, lumbar region (principal); M47.817 Spondylosis without myelopathy or radiculopathy, lumbosacral region
CPT/HCPCS: 64493; 64494; 99152; J2250

== ENCOUNTER 2025-04-09 07:13 | Outpatient (CLI) | payer MEDICARE, OTHER, SELFPAY ==
[2025-04-09] VITALS (10 sets, daily range): BP systolic 159–193; BP diastolic 65–90; PULSE 63–73; RESP 10–20; TEMP 36.6; O2SAT 94–100
[2025-04-09] MEDS: MIDAZOLAM 2 MG/2 ML VIAL IV (08:39)
[2025-04-09] MEDS: LIDOCAINE 1% 20 ML 5 ML INJ (08:45)
--- NOTE | 2025-04-09 09:12 | P.PCN_ITS ---
Date/Time/Diagnoses Date of procedure: 04/09/25 Time of procedure: 09:12 Pre-procedure diagnosis: 1. RECALCITRANT FACET ARTHROPATHY Post-procedure diagnosis: same Procedure Notes Procedure: 1. RIGHT L4 AND L5 MEDIAL BRANCH RADIOFREQUENCY NEUROTOMY AND RIGHT S1 DORSAL RAMUS BRANCH RADIOFREQUENCY NEUROTOMY Indications: Vianey is referred by Dr. Holm for treatment of facet arthropathy. Physician: Mann Oliveira Total Fluoroscopy time (seconds): 6 Total sedation minutes: 26 Complications: none Procedure in detail & Post-procedure care: DESCRIPTION OF PROCEDURE Right L4 and L5 medial branch radiofrequency neurotomy and right S1 dorsal ramus branch radiofrequency neurotomy under fluoroscopy with conscious sedation. The patient is well known to this clinic having undergone previous facet injections with good but temporary relief. The patient has experienced appropriate, concordant relief with previous facet and median branch blocks but the patient's pain has been recalcitrant to further conservative measures. Therefore, based upon the patient's relief and persistent symptoms, the patient is considered an appropriate candidate for facet rhizotomy. All of the patient's questions regarding the risks versus benefits of the procedure, including, but not limited to, bleeding, infection, temporary as well as lasting nerve injury, paralysis, stroke, and , as well treatment alternatives were answered to satisfaction. After review of previous anaesthesic history and IV conscious sedation the patient was deemed safe to proceed with today?s procedure with IV conscious sedation as ASA class II designation. Safety time-out was performed to confirm patient ID, procedure to be performed and site of procedure. IV sedation was accomplished with a combination of 2mg of Versed was administered by the RN after DO order, titrated to patient comfort during the course of the procedure while the patient remained responsive to all verbal commands. After obtaining informed consent, denial of pertinent drug allergies, as well as being made aware of the potential risks of bleeding, infection, spinal cord trauma, paralysis, temporary and permanent nerve damage, seizure, stroke, and possible , the patient was brought to the fluoroscopy suite and positioned prone on the fluoroscopy table. The lumbar region was prepped with Betadine and covered with a fenestrated drape in the usual sterile fashion. Appropriate monitors applied including pulse oximeter, pulse, and blood pressure for regular monitoring throughout the procedure. After local infiltration using 1% lidocaine, under fluoroscopic guidance, a 10- cm RF insulated needle with a 10-mm active tip was positioned parallel to the junction of the right sacral ala and the superior articulating process where the S1 dorsal ramus resides. Needle placement was confirmed with sensory stimulation at 50 Hz, with motor stimulation of .5v on the right which produced local stimulation without radicular component. The stimulation was then increased to 2v with, once again, only local multifidus stimulation without radicular component. This was then followed by two discreet lesions performed at 80 degrees Celsius for 90 seconds each. The needle was then removed and the identical procedure was performed along the length of the right L5 medial branch with motor stimulation at .7v on the right. The identical procedure was once again performed along the length of the right L4 medial branch with motor stimulation of .5v on the right. The patient tolerated the procedure well without signs or symptoms of complications prior to transfer to the recovery area continued monitoring without incident. The patient was then transferred to the recovery area where they were observed for an appropriate period of time after the injection. The patient was then transferred to the recovery area where they were observed for an appropriate period of time after the injection. The patient reported a VAS score of 8 prior to the procedure and a post- procedure VAS of 0. POST OP INSTRUCTIONS The patient was provided a Pain Log to continue to record the patient's response to the target-specific procedure prior to the patient's follow-up visit with the referring physician. Additionally, specific post-injection care instructions and a contact number to our office were provided if concerns arise regarding possible complications associated with the procedure are suspected.
== END 2025-04-09 09:26 | disposition home or self-care (01) ==
LOC: RAD 07:14
PROVIDERS: PCP Family Medicine; Referring Provider Family Medicine; Visit Provider Physical Medicine & Rehabilitation
DX: M47.816 Spondylosis without myelopathy or radiculopathy, lumbar region (principal); M47.817 Spondylosis without myelopathy or radiculopathy, lumbosacral region
CPT/HCPCS: 64493; 64494; 99152; 99153; J2250